=== PATIENT | male | born 1985 | race Caucasian/White ===

== ENCOUNTER 2019-10-23 22:37 | Emergency (ER) | payer OTHER, BC ==
[2019-10-23 23:21] LABS: CHLORIDE,CL 106 mmol/L (98-107); SODIUM,NA 142 mmol/L (136-145)
[2019-10-23 23:26] LABS: ANION GAP 15.7 mmol/L (10-20)
[2019-10-23] MEDS: Iopamidol 612 MG/ML 100 ML Bottle IVPUSH ONE (23:51)
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
== END 2019-10-24 00:42 | disposition home or self-care (01) ==
LOC: VM.ED 22:37
DX: S16.1XXA Strain of muscle, fascia and tendon at neck level, initial encounter (principal); V89.2XXA Person injured in unspecified motor-vehicle accident, traffic, initial encounter; Y92.410 Unspecified street and highway as the place of occurrence of the external cause
CPT/HCPCS: 36415; 71045; 72125; 72170; 74177; 80053; 80307; 83605; 83690; 84484; 85025; 93005; 99285; Q9967